=== PATIENT | male | born 2000 | race African-American/Black ===

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

== ENCOUNTER 2018-01-18 13:02 | Emergency (ER) | payer OTHER, SELFPAY ==
--- NOTE | 2018-01-18 14:43 | RAD ---
LEFT INDEX FINGER 3 VIEWS: Date: 01/18/18 HISTORY: Pain. Infection. FINDINGS: Joint spaces are preserved. No fracture. No cortical irregularity. No erosive or destructive changes. No periosteal reaction. There is mild soft tissue swelling at the nail bed. IMPRESSION: Mild soft tissue swelling. No fracture. No radiographic evidence of osteomyelitis. POS: [facility]
== END 2018-01-18 15:10 | disposition home or self-care (01) ==
LOC: ERS 13:02
DX: L84 Corns and callosities (principal)

== ENCOUNTER 2021-02-06 17:42 | Emergency (ER) | payer SELFPAY ==
[2021-02-06] MEDS ORDERED: Ibuprofen 200 MG TAB ONE (17:52)
[2021-02-06] MEDS ORDERED: Acetaminophen 500 MG TAB ONE (17:52)
[2021-02-06] MEDS ORDERED: Ondansetron PF 4 MG/2 ML Vial ONE (18:38)
[2021-02-06 20:19] LABS: Bilirubin Negative (Negative); Blood, Urine Negative (Negative); Clarity Clear (Clear); Glucose, Urine (Dipstick) Normal (Negative); Ketone, Urine 80 mg/dL (Negative); Leukocyte Negative Leu/uL (Negative); Nitrite Negative (Negative); Protein, Urine (Dipstick) 10 mg/dL (Neg-Trace); Urobilinogen Normal mg/dL (Less than 2); pH, Urine 5.5 (5.0-9.0)
[2021-02-07 15:24] LABS: SARS-CoV-2 PCR by NAA DETECTED (NotDetected)
== END 2021-02-06 20:00 | disposition home or self-care (01) ==
LOC: ERS 17:42
DX: U07.1 COVID-19 (principal)
CPT/HCPCS: 81003; 87804; 96374; J2405; U0003; U0005

== ENCOUNTER 2023-12-23 20:29 | Emergency (ER) | payer BC ==
[2023-12-23] MEDS ORDERED: Cyclobenzaprine 10 MG TAB ONE (21:59)
[2023-12-23] MEDS ORDERED: Ketorolac Tromethamine 30 MG (1 mL) VIAL ONE (21:59)
== END 2023-12-23 23:00 | disposition home or self-care (01) ==
LOC: ERS 20:29
DX: S60.412A Abrasion of right middle finger, initial encounter (principal); S60.414A Abrasion of right ring finger, initial encounter; V49.49XA Driver injured in collision with other motor vehicles in traffic accident, initial encounter; Y93.89 Activity, other specified
CPT/HCPCS: 96372; 99283; J1885